=== PATIENT | male | born 1980 | race Hispanic/Latino ===

== ENCOUNTER 2022-08-23 14:36 | Emergency (ER) | payer OTHER ==
[2022-08-23] MEDS ORDERED: Lidocaine 1% (PF) 30 ML VIAL ONE (15:05)
[2022-08-23] MEDS ORDERED: Bacitracin 1 PK ONE (15:47)
[2022-08-23] MEDS ORDERED: Boostrix 0.5 ML (Tdap) VIAL (>/=7 yrs of age) ONE (15:47)
== END 2022-08-23 17:05 | disposition home or self-care (01) ==
LOC: MADERS 14:36
DX: S63.280A Dislocation of proximal interphalangeal joint of right index finger, initial encounter (principal); W50.2XXA Accidental twist by another person, initial encounter
CPT/HCPCS: 26770; 90471; 90715; J2001